=== PATIENT | female | born 1955 | race Caucasian/White ===

== ENCOUNTER 2019-03-09 22:54 | Emergency (ER) | payer MEDICARE, OTHER ==
[~2019-03-09] VITALS: Ht 162.6 cm; Wt 65.8 kg
[~2019-03-09 22:54] MED LIST: ARIPIPRAZOLE5 MG PO; CITA20 PO; CODACE30 PO; FLUO10 PO; HYDR1TAB94 PO; Keflex500 MG PO; LIOT5 PO; LOSARTAN POTAS100 MG PO; MODAFINIL100 MG PO; OSEL75CA PO
[2019-03-09 23:28] LABS: Source, Urine Clean Catch
[2019-03-09 23:31] LABS: Appearance, Urine Clear (Clear); Bilirubin, Urine Neg (Neg); Blood, Urine Neg (Neg); Color, Urine Yellow (P-Yellow); Glucose Qualitative, Urine Neg (Neg); Ketones, Urine Neg (Neg); Leukocyte Esterase, Urine 2+ (Neg); Nitrite, Urine Neg (Neg); Protein, Urine Neg (Neg); Specific Gravity, Urine 1.005 (1.003-1.022); Urobilinogen, Urine NORM (Normal)
[2019-03-09 23:37] LABS: Bacteria Few /hpf; Squamous Epithelial Cells Not Seen /hpf (Few)
[2019-03-10] MEDS ORDERED: CEPH500 PO
[2019-03-10] MEDS ORDERED: Pyridium100 MG PO
[2019-03-10] MEDS ORDERED: LOSA25 PO (00:47)
[2019-03-10] MEDS ORDERED: ALBU90OI (00:49)
[2019-03-10] MEDS ORDERED: DEXT10ER PO (00:49)
[2019-03-10] MEDS ORDERED: TRAM50 PO (00:49)
[2019-03-10] MEDS ORDERED: GABA300 PO (00:49)
== END 2019-03-10 00:51 | disposition home or self-care (01) ==
LOC: ER 22:54
PROVIDERS: Emergency Medicine
DX: N30.90 Cystitis, unspecified without hematuria (principal); I10 Essential (primary) hypertension; F32.9 Major depressive disorder, single episode, unspecified; F41.9 Anxiety disorder, unspecified; Z88.5 Allergy status to narcotic agent; Z79.899 Other long term (current) drug therapy
CPT/HCPCS: 81001; 87077; 87086; 87186; 99283; A9270-GY

== ENCOUNTER → 2019-03-31 | Outpatient (CLI) | payer MEDICARE, OTHER ==
[~2019-03-31] MED LIST changes: +ALBU90OI; +CEPH500 PO; +DEXT10ER PO; +GABA300 PO; +LOSA25 PO; +Pyridium100 MG PO; +TRAM50 PO
== END ==
LOC: LAB SHORT 15:27 → LAB 15:27
DX: N39.0 Urinary tract infection, site not specified (principal)
CPT/HCPCS: 87077; 87086; 87186

== ENCOUNTER → 2019-12-23 | Outpatient (CLI) | payer MEDICARE, OTHER | LOC: LAB SHORT 19:33 → LAB 19:33 | DX: R30.0 Dysuria (principal) | CPT/HCPCS: 87077; 87086; 87147; 87186 ==

== ENCOUNTER → 2020-08-02 | Outpatient (CLI) | payer MEDICARE, OTHER ==
[2020-08-02 20:11] LABS: Appearance, Urine Clear (Clear); Bilirubin, Urine Neg (Neg); Blood, Urine 2+ (Neg); Color, Urine Yellow (P-Yellow); Glucose Qualitative, Urine Neg (Neg); Ketones, Urine Neg (Neg); Leukocyte Esterase, Urine 1+ (Neg); Nitrite, Urine Neg (Neg); Protein, Urine Neg (Neg); Urobilinogen, Urine NORM (Normal)
[2020-08-02 20:24] LABS: Bacteria Mod /hpf; Squamous Epithelial Cells Few /hpf (Few)
== END | disposition home or self-care (01) ==
LOC: LAB SHORT 18:44 → LAB 18:44
PROVIDERS: Family Medicine
DX: N39.0 Urinary tract infection, site not specified (principal)
CPT/HCPCS: 81015; 87077; 87086; 87186

== ENCOUNTER → 2020-08-21 | Outpatient (CLI) | payer MEDICARE, OTHER | END | disposition home or self-care (01) | LOC: LAB SHORT 13:00 → LAB 13:00 | DX: N39.0 Urinary tract infection, site not specified (principal) | CPT/HCPCS: 87086 ==

== ENCOUNTER → 2021-08-31 | Outpatient (CLI) | payer MEDICARE, OTHER | END | disposition home or self-care (01) | LOC: LAB SHORT 15:30 | DX: N39.0 Urinary tract infection, site not specified (principal) | CPT/HCPCS: 87086; 87147 ==

== ENCOUNTER 2022-06-13 10:01 | Day surgery (SDC) | payer MEDICARE, OTHER ==
[~2022-06-13] VITALS: Ht 165.1 cm; Wt 65.3 kg
[2022-06-13] MEDS ORDERED: ATROVENT HFA12.9 GM (10:22)
[2022-06-13] MEDS ORDERED: FLUO10 (10:22)
[2022-06-13] MEDS ORDERED: CLIMARA1 EACH (10:22)
[2022-06-13 12:05] VITALS: BP 140/80
--- NOTE | 2022-06-13 12:06 | NUR ---
06/13/22 1206 ANTHONY SCHNEIDER IV DCD POSTOP IN EXAM ROOM.
== END 2022-06-13 12:08 | disposition home or self-care (01) ==
LOC: ORSCSDS 10:01
PROVIDERS: Surgery
PROC: 0DJD8ZZ Inspection of Lower Intestinal Tract, Via Natural or Artificial Opening Endoscopic (ICD-10-PCS; principal; 2022-06-13 11:15)
DX: Z12.11 Encounter for screening for malignant neoplasm of colon (principal); I10 Essential (primary) hypertension; F32.A Depression, unspecified; D64.9 Anemia, unspecified; Z87.891 Personal history of nicotine dependence; Z79.899 Other long term (current) drug therapy
CPT/HCPCS: J2405; J2704; J7120

== ENCOUNTER 2022-10-16 22:25 | Emergency (ER) | payer MEDICARE, OTHER ==
[~2022-10-16] VITALS: Ht 165.1 cm; Wt 65.3 kg
[~2022-10-16 22:25] MED LIST changes: +ATROVENT HFA12.9 GM; +CLIMARA1 EACH; +FLUO10
[2022-10-16 22:38] VITALS: BP 111/56
== END 2022-10-17 00:01 | disposition home or self-care (01) ==
LOC: ER 22:25
DX: M25.572 Pain in left ankle and joints of left foot (principal); M79.672 Pain in left foot; I10 Essential (primary) hypertension; Z88.5 Allergy status to narcotic agent; Z88.6 Allergy status to analgesic agent; Z88.8 Allergy status to other drugs, medicaments and biological substances; W19.XXXA Unspecified fall, initial encounter
CPT/HCPCS: 73610; 73630; 99283-25; J7512

== ENCOUNTER → 2022-11-13 | Outpatient (CLI) | payer MEDICARE, OTHER | LOC: LAB 16:30 → LAB SHORT 16:30 | DX: N39.0 Urinary tract infection, site not specified (principal) | CPT/HCPCS: 87086 ==

== ENCOUNTER 2023-06-20 08:08 | Day surgery (SDC) | payer BC, MEDICARE, OTHER ==
[~2023-06-20] VITALS: Ht 165.1 cm; Wt 66.3 kg
[~2023-06-20 08:08] MED LIST changes: +ALPR.5; +Balanced Salt Epinephrine Irrigation Solution 500 mL IR SCH; +ESTR2 PO; +HYDROCODONE-AC1 EA10; +LOSA50; +Lidocaine HCl/Pf 1% 5 ML VIAL XX SCH; +MONT10T; +Moxifloxacin HCL 0.5 MG/0.1 ML 0.4MLSYR RIGHTEYE SCH; +NS 500 ML IV ONE; +OMEP20ER PO; +ONDA4ODT; +PHENYLEPHRINE\\TROPICAMIDE\\TETRACAINE OPHTHALMIC DILATING SOLN RIGHTEYE PRN; +Povidone-Iodine 450 DROP/30 ML Solution ONE; +Povidone-Iodine 450 DROP/30 ML Solution RIGHTEYE SCH; +Prozac20 MG PO; +ZOLP10 PO
[2023-06-20] MEDS ORDERED: NS 500 ML IV ONE (08:44)
[2023-06-20] MEDS ORDERED: ONDA4ODT MM (08:47)
[2023-06-20] MEDS ORDERED: Midazolam HCl 1MG / ML 2ML Vial ONE (08:49)
[2023-06-20] MEDS ORDERED: Phenylephrine Frt 10% Opth (ORSC) ONE (09:14)
[2023-06-20] MEDS ORDERED: Tetracaine HCl 0.5% Opth Soln 15 ml RIGHTEYE ONE (09:24)
[2023-06-20] MEDS ORDERED: FentaNYL Citrate 50 MCG/ML 2 ML Injection ONE (09:28)
[2023-06-20 10:06] VITALS: BP 114/68
== END 2023-06-20 09:58 | disposition home or self-care (01) ==
LOC: ORSCSDS 08:08
PROVIDERS: Student in an Organized Health Care Education/Training Program
PROC: 08RJ3JZ Replacement of Right Lens with Synthetic Substitute, Percutaneous Approach (ICD-10-PCS; principal; 2023-06-20 09:30)
DX: H25.11 Age-related nuclear cataract, right eye (principal); Z96.1 Presence of intraocular lens; K21.9 Gastro-esophageal reflux disease without esophagitis; R06.02 Shortness of breath; J45.909 Unspecified asthma, uncomplicated; I10 Essential (primary) hypertension; Z79.899 Other long term (current) drug therapy
CPT/HCPCS: J2250; J3010; J7040; V2632

== ENCOUNTER → 2025-01-12 | Outpatient (CLI) | payer BC, MEDICARE ==
[~2025-01-12] MED LIST changes: -Balanced Salt Epinephrine Irrigation Solution 500 mL IR SCH; -Lidocaine HCl/Pf 1% 5 ML VIAL XX SCH; -Moxifloxacin HCL 0.5 MG/0.1 ML 0.4MLSYR RIGHTEYE SCH; -NS 500 ML IV ONE; +ONDA4ODT MM; -PHENYLEPHRINE\\TROPICAMIDE\\TETRACAINE OPHTHALMIC DILATING SOLN RIGHTEYE PRN; -Povidone-Iodine 450 DROP/30 ML Solution ONE; -Povidone-Iodine 450 DROP/30 ML Solution RIGHTEYE SCH
== END ==
LOC: LAB SHORT 12:05 → LAB 12:05
DX: N39.0 Urinary tract infection, site not specified (principal)
CPT/HCPCS: 87077; 87086; 87186